=== PATIENT | female | born 1995 | race Caucasian/White ===

== ENCOUNTER 2018-03-30 14:34 | Emergency (ER) | payer SELFPAY ==
[~2018-03-30] VITALS: Ht 162.6 cm; Wt 75.0 kg
[2018-03-30 15:00] VITALS: BP 115/64
== END 2018-03-30 17:30 | disposition home or self-care (01) ==
LOC: ER 16:43
DX: H66.92 Otitis media, unspecified, left ear (principal); H60.92 Unspecified otitis externa, left ear
CPT/HCPCS: 99283

== ENCOUNTER 2019-06-11 12:53 | Inpatient (IN) | payer SELFPAY ==
[~2019-06-11] VITALS: Ht 157.5 cm; Wt 69.9 kg
[2019-06-11] MEDS ORDERED: CEFTRIAXONE 1 G PREMIX 50 ML IV ONE (16:15)
[2019-06-11] MEDS ORDERED: SODIUM CHLORIDE 0.9% 1000ML BAG (SEPSIS BOLUS) IV ONE (16:15)
[2019-06-11 16:29] LABS: BASOPHILS % 0.4 % (0.0-2.0); EOSINOPHILS % 0.3 % (0.0-5.0); HEMATOCRIT. 38.4 % (36.0-48.0); LYMPHOCYTES % 16.3 % (20.0-50.0); MEAN CORPUSCULAR HEMOGLOBIN 28.9 pg (28.0-32.0); MEAN CORPUSCULAR VOLUME 85.2 fL (81.0-99.0); MEAN PLATELET VOLUME 10.2 fl (7.4-10.4); MONOCYTES % 5.3 % (2.0-8.0); NEUTROPHILS % 77.7 % (40.0-76.0); PLATELET 243 x1000/uL (130-400); RED BLOOD CELL COUNT 4.51 mill/uL (4.2-5.4); RED CELL DISTRIBUTION WIDTH 13.8 % (11.6-14.6)
[2019-06-11] MEDS ORDERED: KETOROLAC 30MG/ML VIAL IV ONE (16:30)
[2019-06-11 16:35] LABS: PROTHROMBIN TIME 10.4 sec (9.6-11.0)
[2019-06-11 16:36] LABS: CHLORIDE 105 mEq/L (98-107)
[2019-06-11 16:40] LABS: HCG SCREEN NEGATIVE
[2019-06-11 18:29] LABS: CLARITY URINE CLEAR (CLEAR); COLOR URINE YELLOW (YELLOW); KETONES URINE NEGATIVE (NEGATIVE); LEUKOCYTE ESTERASE URINE 1+ (NEGATIVE); NITRITE URINE NEGATIVE (NEGATIVE); OCCULT BLOOD URINE 3+ (NEGATIVE); PH URINE 7.5 (4.5-8.0); PROTEIN URINE NEGATIVE (NEGATIVE); SPECIFIC GRAVITY URINE 1.016 (1.005-1.030)
[2019-06-11] MEDS ORDERED: IOHEXOL-300 100 ML BOTTLE ONE (19:26)
[2019-06-11] MEDS ORDERED: LEVOFLOXACIN 500MG PREMIX 100 ML IV ONE (20:00)
[2019-06-11] MEDS ORDERED: ONDANSETRON HCL 4MG/2ML INJ IV ONE (20:30)
[2019-06-11] MEDS ORDERED: MORPHINE SULFATE 4 MG/ML CPJ (NOT FOR IM USE) IV ONE (20:30)
[2019-06-11] MEDS ORDERED: LEVOFLOXACIN 500MG PREMIX 100 ML IV SCH (20:45)
[2019-06-11] MEDS ORDERED: GUAIFENESIN 200MG/10ML SUGAR FREE UDC PO PRN (20:45)
[2019-06-11] MEDS ORDERED: IPRATROPIUM/ALBUTEROL 0.5-3(2.5)MG/3ML NEB HHN PRN (20:45)
[2019-06-11] MEDS ORDERED: ONDANSETRON HCL 4MG/2ML INJ IV PRN (20:45)
[2019-06-11] MEDS ORDERED: DOCUSATE SODIUM 100MG CAPSULE PO PRN (20:45)
[2019-06-11] MEDS ORDERED: ACETAMINOPHEN 325MG TABLET PO PRN (20:45)
[2019-06-11] MEDS ORDERED: NITROGLYCERIN 0.4MG TABLET SL SL PRN (20:45)
[2019-06-11] MEDS ORDERED: ZOLPIDEM TARTRATE 5MG TABLET PO PRN (20:45)
[2019-06-11] MEDS ORDERED: MAGNESIUM/ALUMINUM HYDROXIDE/SIMETHICONE 30ML UDC PO PRN (20:45)
[2019-06-11] MEDS ORDERED: CLONIDINE 0.1MG TABLET PO PRN (20:45)
[2019-06-11 22:15] VITALS: BP 108/73
[2019-06-11] MEDS ORDERED: POTASSIUM CHLORIDE 20MEQ TABLET SR PO NR (23:00)
[2019-06-11] MEDS: KETOROLAC 15MG/ML VIAL IV PRN (23:13)
[2019-06-11] MEDS: ASCORBIC ACID 500 MG TABLET PO SCH (23:17)
[2019-06-11] MEDS: FAMOTIDINE 20MG TABLET PO SCH (23:17)
[2019-06-12] VITALS: BP 120/75
[2019-06-12] MEDS: NEOMYCIN-POLYMYXIN-HYDROCORTISONE 1% OTIC SUSP 10ML RIGHT EAR SCH ×3 (00:45→12:18)
[2019-06-12 04:00] VITALS: BP 129/81
[2019-06-12] MEDS: TRAMADOL 50MG TABLET PO PRN ×2 (04:13→10:14)
[2019-06-12] MEDS: KETOROLAC 15MG/ML VIAL IV PRN ×2 (06:18→12:18)
[2019-06-12 08:00] VITALS: BP 111/60
[2019-06-12] MEDS: FAMOTIDINE 20MG TABLET PO SCH (08:29)
[2019-06-12] MEDS: ASCORBIC ACID 500 MG TABLET PO SCH (08:29)
[2019-06-12] MEDS ORDERED: ZINC SULFATE 220 MG ( 50 ) CAPSULE PO SCH (09:00)
[2019-06-12 11:00] VITALS: BP 111/60
[2019-06-12 12:00] VITALS: BP 112/66
[2019-06-12 12:18] VITALS: BP 111/60
[2019-06-12] MEDS ORDERED: CEFTRIAXONE 1 G PREMIX 50 ML IV SCH (17:00)
== END 2019-06-12 14:30 | disposition home or self-care (01) | DRG 720 ==
LOC: ER 14:36 → 6EST 20:15 → EDBEDREQ 20:42 → EDBEDREQTM 20:42 → ENRESERV 21:19
PROVIDERS: ADMIT Internal Medicine; ATTEND Family Medicine
DX: A41.9 Sepsis, unspecified organism (principal); E87.6 Hypokalemia; N39.0 Urinary tract infection, site not specified; H60.91 Unspecified otitis externa, right ear; H66.91 Otitis media, unspecified, right ear; Z79.899 Other long term (current) drug therapy
CPT/HCPCS: 36415; 70487; 71045; 81003; 83605; 84145; 84703; 99291; J0696; J1885; J1956; J2270; J2405; J7030; J7620; Q9967

== ENCOUNTER 2020-08-10 21:07 | Emergency (ER) | payer MEDICAID ==
[~2020-08-10] VITALS: Ht 157.5 cm; Wt 74.0 kg
[2020-08-10] MEDS ORDERED: KETOROLAC 30MG/ML VIAL IV STA (22:50)
[2020-08-10] MEDS ORDERED: CLINDAMYCIN 900 MG in DEXTROSE 5% WATER 50 ML IV ONE (23:00)
[2020-08-10] MEDS ORDERED: DEXAMETHASONE 10 MG/ML VIAL IV ONE (23:00)
[2020-08-11] MEDS ORDERED: CLINDAMYCIN 900 MG PREMIX 50 ML IV SCH
[2020-08-11 01:32] VITALS: BP 120/81
== END 2020-08-11 01:42 | disposition home or self-care (01) ==
LOC: ER 21:07
DX: J03.90 Acute tonsillitis, unspecified (principal); R59.0 Localized enlarged lymph nodes
CPT/HCPCS: 96365; 96375; 99284; J1100; J1885; J3490; J7060

== ENCOUNTER 2020-08-19 18:11 | Emergency (ER) | payer MEDICAID ==
[~2020-08-19] VITALS: Ht 157.5 cm; Wt 72.5 kg
[2020-08-19 18:17] VITALS: BP 149/84
[2020-08-19] MEDS ORDERED: KETOROLAC 30MG/ML VIAL IV STA (18:53)
[2020-08-19] MEDS ORDERED: DEXAMETHASONE 4MG/ML 1ML VIAL IV ONE (19:00)
[2020-08-19] MEDS ORDERED: SODIUM CHLORIDE 0.9% 1,000 ML IV ONE (19:00)
[2020-08-19 19:13] LABS: BASOPHILS % 0.9 % (0.0-2.0); EOSINOPHILS % 0.2 % (0.0-5.0); HEMATOCRIT. 38.3 % (36.0-48.0); HEMOGLOBIN. 12.9 g/dL (12.0-16.0); LYMPHOCYTES % 11.2 % (20.0-50.0); MEAN PLATELET VOLUME 9.9 fl (7.4-10.4); MONOCYTES % 4.6 % (2.0-8.0); NEUTROPHILS % 83.1 % (40.0-76.0); PLATELET 266 x1000/uL (130-400); RED BLOOD CELL COUNT 4.45 mill/uL (4.2-5.4); RED CELL DISTRIBUTION WIDTH 13.3 % (11.6-14.6)
[2020-08-19 19:19] LABS: CHLORIDE 102 mEq/L (98-107)
[2020-08-19] MEDS ORDERED: AMPICILLIN SOD/SULBACTAM NA 3 G in SODIUM CHLORIDE 0.9% 100 ML IV SCH (20:00)
[2020-08-19] MEDS ORDERED: LIDOCAINE HCL 4% CREAM 76GM TUBE TP STA (21:09)
[2020-08-19] MEDS ORDERED: BENZOCAINE/LANOLIN/ALOE VERA SPRAY TOP ONE (21:15)
[2020-08-19] MEDS ORDERED: LIDOCAINE HCL 4% (40MG/ML) SOLN 50ML TOP ONE (21:30)
[2020-08-19] MEDS ORDERED: IOHEXOL-300 100 ML BOTTLE ONE (23:12)
== END 2020-08-19 23:56 | disposition home or self-care (01) ==
LOC: ER 18:11
DX: J36 Peritonsillar abscess (principal)
CPT/HCPCS: 36415; 42700; 70491; 80053; 81025; 85025; 96361; 96365; 96375; 99284; J0295; J1100; J1885; J7030; J7050; Q9967; Z7610

== ENCOUNTER 2022-09-24 11:33 | Emergency (ER) | payer MEDICAID ==
[~2022-09-24] VITALS: Ht 157.5 cm; Wt 74.0 kg
[2022-09-24 11:41] VITALS: BP 119/69
[2022-09-24] MEDS ORDERED: ISOP30DR11 EACH EAR (13:52)
== END 2022-09-24 14:28 | disposition home or self-care (01) ==
LOC: ER 11:42
DX: H61.21 Impacted cerumen, right ear (principal); R07.89 Other chest pain
CPT/HCPCS: 71045; 81025; 93005; 99283

== ENCOUNTER 2023-12-02 19:43 | Emergency (ER) | payer MEDICAID ==
[~2023-12-02] VITALS: Ht 157.5 cm; Wt 77.5 kg
[~2023-12-02 19:43] MED LIST: ISOP30DR11 EACH EAR
[2023-12-02 20:02] VITALS: O2SAT 97
[2023-12-02 20:22] LABS: CLARITY URINE CLEAR (CLEAR); COLOR URINE YELLOW (YELLOW); GLUCOSE URINE NEGATIVE (NEGATIVE); KETONES URINE NEGATIVE (NEGATIVE); LEUKOCYTE ESTERASE URINE NEGATIVE (NEGATIVE); NITRITE URINE NEGATIVE (NEGATIVE); OCCULT BLOOD URINE 1+ (NEGATIVE); PH URINE 7.5 (4.5-8.0); PROTEIN URINE NEGATIVE (NEGATIVE); SPECIFIC GRAVITY URINE 1.019 (1.005-1.030)
[2023-12-02 20:33] LABS: BACTERIA URINE NONE SEEN; SQUAMOUS EPITHELIAL CELL URINE 2+ /lpf (RARE/1+); WBC URINE 0-2 /hpf (0-2)
[2023-12-02] MEDS: SODIUM CHLORIDE 0.9% 1000ML BAG (SEPSIS BOLUS) IV ONE (22:01)
[2023-12-02] MEDS: CEFTRIAXONE 1GM/50ML 50 ML IV NR (22:06)
[2023-12-02 22:18] LABS: HEMOGLOBIN. 13.2 g/dL (12.0-16.0); MEAN CORPUSCULAR HEMOGLOBIN 29.8 pg (28.0-32.0); MEAN CORPUSCULAR HGB CONC 33.8 g/dL (31.0-37.0); MEAN CORPUSCULAR VOLUME 88.2 fL (81.0-99.0); MEAN PLATELET VOLUME 10.4 fl (7.4-10.4); PLATELET 236 x1000/uL (130-400); RED BLOOD CELL COUNT 4.42 mill/uL (4.2-5.4); RED CELL DISTRIBUTION WIDTH 13.5 % (11.6-14.6); WHITE BLOOD COUNT 22.4 x1000/uL (4.5-11.0)
[2023-12-02 22:20] LABS: DIFFERENTIAL COMMENT 1
[2023-12-02 22:32] LABS: PROTHROMBIN TIME 10.9 sec (9.6-11.0)
[2023-12-02] MEDS: ACETAMINOPHEN 325MG TABLET PO NR (22:32)
[2023-12-02] MEDS: AZITHROMYCIN 500MG/250ML 250 ML IV NR (22:32)
[2023-12-02 22:34] LABS: ALANINE AMINOTRANSFERASE 17 IU/L (10-49); ALBUMIN 5.3 g/dL (3.2-4.8); ASPARTATE AMINOTRANSFERASE 18 IU/L (<34); BILIRUBIN TOTAL 1.2 mg/dL (0.1-1.0); CALCIUM 9.5 mg/dL (8.7-10.4); CARBON DIOXIDE 26 mEq/L (21-32); CHLORIDE 101 mEq/L (98-107); CREATININE 0.6 mg/dL (0.6-1.0); GLUCOSE 102 mg/dL (70-105); POTASSIUM 3.7 mEq/L (3.5-5.1); PROTEIN TOTAL 9.1 g/dL (6.0-8.3); SODIUM 134 mEq/L (136-145); UREA NITROGEN BLOOD 12 mg/dL (9-23)
[2023-12-02 22:48] LABS: PLATELET ESTIMATE NORMAL
[2023-12-03 02:48] LABS: HCG SCREEN NEGATIVE
[2023-12-03] MEDS ORDERED: AMOX1TAB16 MT (06:13)
[2023-12-03] MEDS ORDERED: DOXY150T9 MT (06:13)
[2023-12-03 07:07] VITALS: BP 111/64; PULSE 84; RESP 13; TEMP 98.5
== END 2023-12-03 07:13 | disposition home or self-care (01) ==
LOC: ER 19:43
DX: J18.9 Pneumonia, unspecified organism (principal)
CPT/HCPCS: 99285; 96365; 71045; 96366; 80053; 81003; 81025; 84703; 83605; 85025; 85610; 87040; 36415; 84145; 93005; 96368; 87086; J0456; J0696

== ENCOUNTER 2023-12-10 18:19 | Emergency (ER) | payer MEDICAID ==
[~2023-12-10] VITALS: Ht 157.5 cm; Wt 77.0 kg
[~2023-12-10 18:19] MED LIST changes: +AMOX1TAB16 MT; +DOXY150T9 MT
[2023-12-10 18:22] VITALS: O2SAT 99
[2023-12-11 00:47] LABS: BASOPHILS % 0.3 % (0.0-2.0); EOSINOPHILS % 1.7 % (0.0-5.0); HEMOGLOBIN. 12.4 g/dL (12.0-16.0); LYMPHOCYTES % 33.4 % (20.0-50.0); MEAN CORPUSCULAR HEMOGLOBIN 29.7 pg (28.0-32.0); MEAN CORPUSCULAR HGB CONC 33.6 g/dL (31.0-37.0); MEAN CORPUSCULAR VOLUME 88.5 fL (81.0-99.0); MEAN PLATELET VOLUME 8.8 fl (7.4-10.4); MONOCYTES % 6.9 % (2.0-8.0); NEUTROPHILS % 57.7 % (40.0-76.0); PLATELET 304 x1000/uL (130-400); RED BLOOD CELL COUNT 4.18 mill/uL (4.2-5.4); WHITE BLOOD COUNT 12.4 x1000/uL (4.5-11.0)
[2023-12-11 01:15] LABS: HCG SCREEN NEGATIVE
[2023-12-11 01:17] LABS: ALANINE AMINOTRANSFERASE 12 IU/L (10-49); ALBUMIN 4.6 g/dL (3.2-4.8); ASPARTATE AMINOTRANSFERASE 16 IU/L (<34); BILIRUBIN TOTAL 0.4 mg/dL (0.1-1.0); CALCIUM 8.8 mg/dL (8.7-10.4); CARBON DIOXIDE 27 mEq/L (21-32); CHLORIDE 105 mEq/L (98-107); CREATININE 0.6 mg/dL (0.6-1.0); GLUCOSE 93 mg/dL (70-105); POTASSIUM 3.8 mEq/L (3.5-5.1); PROTEIN TOTAL 8.1 g/dL (6.0-8.3); SODIUM 138 mEq/L (136-145); UREA NITROGEN BLOOD 15 mg/dL (9-23)
[2023-12-11] MEDS: IBUPROFEN 600MG TABLET PO STA (01:22)
[2023-12-11 01:23] VITALS: BP 116/70; PULSE 65; RESP 16; TEMP 99.1
[2023-12-11 01:39] LABS: TROPONIN I HIGH SENSITIVITY < 4 ng/L (3.0-34)
[2023-12-11] MEDS ORDERED: IOHEXOL-350 100 ML BOTTLE ONE (04:45)
[2023-12-11] MEDS ORDERED: IBUP-2028 MT (05:16)
== END 2023-12-11 05:24 | disposition home or self-care (01) ==
LOC: ER 18:19
DX: R07.89 Other chest pain (principal); R50.9 Fever, unspecified; R05.9 Cough, unspecified; Z87.01 Personal history of pneumonia (recurrent); Z79.899 Other long term (current) drug therapy
CPT/HCPCS: 99285; 71045; 93005; 71275; 80053; 84703; 83690; 85025; 85379; 84484; 36415; Q9967

== ENCOUNTER 2024-09-19 18:48 | Emergency (ER) | payer MEDICAID ==
[~2024-09-19] VITALS: Ht 157.5 cm; Wt 81.6 kg
[~2024-09-19 18:48] MED LIST changes: +IBUP-2028 MT
[2024-09-19 19:04] VITALS: O2SAT 100
[2024-09-19 21:18] LABS: CLARITY URINE CLEAR (CLEAR); COLOR URINE YELLOW (YELLOW); GLUCOSE URINE NEGATIVE (NEGATIVE); KETONES URINE NEGATIVE (NEGATIVE); LEUKOCYTE ESTERASE URINE NEGATIVE (NEGATIVE); NITRITE URINE NEGATIVE (NEGATIVE); OCCULT BLOOD URINE NEGATIVE (NEGATIVE); PROTEIN URINE TRACE (NEGATIVE); SPECIFIC GRAVITY URINE 1.032 (1.005-1.030)
[2024-09-19 21:43] LABS: BACTERIA URINE NONE SEEN; RBC URINE NONE SEEN /hpf (0-2); SQUAMOUS EPITHELIAL CELL URINE NONE SEEN /lpf (RARE/1+); WBC URINE NONE SEEN /hpf (0-2)
[2024-09-20 03:08] LABS: BASOPHILS % 0.2 % (0.0-2.0); EOSINOPHILS % 0.6 % (0.0-5.0); HEMATOCRIT. 36.3 % (36.0-48.0); LYMPHOCYTES % 18.5 % (20.0-50.0); MEAN CORPUSCULAR HEMOGLOBIN 28.9 pg (28.0-32.0); MEAN CORPUSCULAR HGB CONC 33.2 g/dL (31.0-37.0); MONOCYTES % 5.2 % (2.0-8.0); NEUTROPHILS % 75.5 % (40.0-76.0); PLATELET 248 x1000/uL (130-400); RED BLOOD CELL COUNT 4.17 mill/uL (4.2-5.4); RED CELL DISTRIBUTION WIDTH 14.5 % (11.6-14.6)
[2024-09-20 03:09] LABS: CHLORIDE 105 mEq/L (98-107); POTASSIUM 4.3 mEq/L (3.5-5.1); SODIUM 138 mEq/L (136-145)
[2024-09-20 03:10] LABS: CALCIUM 9.3 mg/dL (8.7-10.4); CARBON DIOXIDE 26 mEq/L (21-32)
[2024-09-20 03:15] LABS: CREATININE 0.6 mg/dL (0.6-1.0); GLUCOSE 104 mg/dL (70-105); UREA NITROGEN BLOOD 11 mg/dL (9-23)
[2024-09-20 03:41] LABS: B-HCG QUANTITATIVE 92160 mIU/mL (<3)
[2024-09-20] MEDS ORDERED: TOPUD MT (04:46)
[2024-09-20 04:52] VITALS: BP 108/69; PULSE 77; RESP 16; TEMP 36.94740; O2SAT 97
== END 2024-09-20 04:54 | disposition home or self-care (01) ==
LOC: ER 18:48
DX: O26.891 Other specified pregnancy related conditions, first trimester (principal); Z3A.01 Less than 8 weeks gestation of pregnancy
CPT/HCPCS: 36415; 76801; 80048; 81003; 81025; 84702; 85025; 99284

== ENCOUNTER 2024-10-18 01:48 | Emergency (ER) | payer MEDICAID ==
[~2024-10-18] VITALS: Ht 154.9 cm; Wt 84.0 kg
[~2024-10-18 01:48] MED LIST changes: +TOPUD MT
[2024-10-18 02:17] VITALS: O2SAT 98
[2024-10-18] MEDS ORDERED: ACETAMINOPHEN 325MG TABLET PO PRN (02:45)
[2024-10-18] MEDS: ONDANSETRON 4MG ODT PO ONE (02:45)
[2024-10-18 04:21] LABS: BASOPHILS % 0.1 % (0.0-2.0); EOSINOPHILS % 0.1 % (0.0-5.0); HEMATOCRIT. 35.3 % (36.0-48.0); HEMOGLOBIN. 11.8 g/dL (12.0-16.0); LYMPHOCYTES % 14.4 % (20.0-50.0); MEAN CORPUSCULAR HEMOGLOBIN 29.4 pg (28.0-32.0); MEAN CORPUSCULAR HGB CONC 33.4 g/dL (31.0-37.0); MEAN CORPUSCULAR VOLUME 88.1 fL (81.0-99.0); MEAN PLATELET VOLUME 9.9 fl (7.4-10.4); MONOCYTES % 3.3 % (2.0-8.0); NEUTROPHILS % 82.1 % (40.0-76.0); PLATELET 218 x1000/uL (130-400); RED BLOOD CELL COUNT 4.01 mill/uL (4.2-5.4); RED CELL DISTRIBUTION WIDTH 14.4 % (11.6-14.6); WHITE BLOOD COUNT 12.6 x1000/uL (4.5-11.0)
[2024-10-18 04:28] LABS: CHLORIDE 103 mEq/L (98-107); POTASSIUM 4.1 mEq/L (3.5-5.1); SODIUM 135 mEq/L (136-145)
[2024-10-18 04:29] LABS: CALCIUM 9.1 mg/dL (8.7-10.4); CARBON DIOXIDE 25 mEq/L (21-32)
[2024-10-18 04:34] LABS: CREATININE 0.6 mg/dL (0.6-1.0); GLUCOSE 102 mg/dL (70-105); UREA NITROGEN BLOOD 7 mg/dL (9-23)
[2024-10-18 04:47] LABS: B-HCG QUANTITATIVE 44353 mIU/mL (<3)
[2024-10-18] MEDS: ONDANSETRON 4MG ODT PO NR (05:05)
[2024-10-18 07:13] LABS: CLARITY URINE CLEAR (CLEAR); COLOR URINE YELLOW (YELLOW); GLUCOSE URINE NEGATIVE (NEGATIVE); KETONES URINE NEGATIVE (NEGATIVE); LEUKOCYTE ESTERASE URINE NEGATIVE (NEGATIVE); NITRITE URINE NEGATIVE (NEGATIVE); OCCULT BLOOD URINE NEGATIVE (NEGATIVE); PH URINE 5.5 (4.5-8.0); PROTEIN URINE NEGATIVE (NEGATIVE); SPECIFIC GRAVITY URINE 1.021 (1.005-1.030); UROBILINOGEN URINE 0.2 E.U./dL (0.2-1.0)
[2024-10-18 08:17] VITALS: BP 105/60; PULSE 86; RESP 18; TEMP 36.7; O2SAT 99
[2024-10-18] MEDS ORDERED: TOPUD PO (09:52)
== END 2024-10-18 10:38 | disposition home or self-care (01) ==
LOC: ER 02:15 → CANBEDREQ 09:53 → ER 10:38
DX: O20.0 Threatened abortion (principal); Z3A.10 10 weeks gestation of pregnancy; O98.511 Other viral diseases complicating pregnancy, first trimester; Z20.822 Contact with and (suspected) exposure to COVID-19
CPT/HCPCS: 80048; 81003; 84702; 85025; 86850; 86900; 86901; 36415; 76801; 76817; 72195; 74181; 99284; 87426; Q0162; Z7610 ×2; A4606

== ENCOUNTER 2025-02-11 21:42 | Emergency (ER) | payer OTHER, MEDICAID ==
[~2025-02-11] VITALS: Ht 157.5 cm; Wt 87.0 kg
[~2025-02-11 21:42] MED LIST changes: +TOPUD PO
[2025-02-11 21:44] VITALS: O2SAT 99
[2025-02-12 01:12] VITALS: BP 133/70; PULSE 86; RESP 16; TEMP 36.8; O2SAT 97
[2025-05-04] MEDS ORDERED: DICL500C MT (11:11)
== END 2025-02-12 01:12 | disposition home or self-care (01) ==
LOC: ER 21:42
DX: O26.893 Other specified pregnancy related conditions, third trimester (principal); R10.9 Unspecified abdominal pain; Z3A.29 29 weeks gestation of pregnancy; Z36.89 Encounter for other specified antenatal screening
CPT/HCPCS: 76815; 76817; 99284; Z7610; A4606